=== PATIENT | female | born 1985 | race Caucasian/White ===

== ENCOUNTER 2017-09-22 18:36 | Emergency (ER) | payer BC, OTHER ==
[2017-09-22] MEDS ORDERED: HYDROmorphone 0.5 MG/0.5 ML Syringe IVPUSH ONE ×2 (19:49→22:46)
[2017-09-22] MEDS ORDERED: Ondansetron 4 MG/2 ML SDV IVPUSH ONE ×2 (19:49→23:57)
--- NOTE | 2017-09-22 19:55 | EDM.PDOC ---
ED HPI GENERAL MEDICAL PROBLEM - General Chief Complaint: Abdominal Pain Stated Complaint: ABDOMINAL PAIN Time Seen by Provider: 09/22/17 19:50 Source of Information: Reports: Patient History Limitations: Reports: No Limitations - History of Present Illness INITIAL COMMENTS - FREE TEXT/NARRATIVE: pt arrived with acute lower abdomanal pain. She has been vomiting since last nite. She states the pain has gotten progressively worse. She feels like the pain is worse on the rt side. She does have a past history of colitis. Onset: Other ( last nite. she has not had a bm in the last 36 hours. ) Duration: Hour(s): Location: Reports: Abdomen Quality: Reports: Sharp, Stabbing Associated Symptoms: Reports: Loss of Appetite, Nausea/Vomiting Middle Abdomen Pain Score (Numeric/FACES): 4 - Related Data Allergies Allergy/AdvReac Type Severity Reaction Status Date / Time No Known Allergies Allergy Verified 09/22/17 20:23 Home Meds: Home Meds Ciprofloxacin HCl [Cipro] 500 mg PO BID #14 tablet 02/01/14 [Rx] Past Medical History Other Gastrointestinal History: CHOLECYSTITIS Social & Family History - Tobacco Use Smoking Status *Q: Unknown Ever Smoked Second Hand Smoke Exposure: Yes - Alcohol Use Days Per Week of Alcohol Use: 5 Number of Drinks Per Day: 1 Total Drinks Per Week: 5 - Recreational Drug Use Recreational Drug Use: No ED ROS GENERAL - Review of Systems Review Of Systems: See Below Constitutional: Reports: No Symptoms HEENT: Reports: No Symptoms Respiratory: Reports: No Symptoms Cardiovascular: Reports: No Symptoms Endocrine: Reports: No Symptoms GI/Abdominal: Reports: Abdominal Pain, Decreased Appetite, Other (pt is passing some gas. ) : Reports: No Symptoms Musculoskeletal: Reports: No Symptoms Skin: Reports: No Symptoms Neurological: Reports: No Symptoms Psychiatric: Reports: No Symptoms ED EXAM, GI/ABD - Physical Exam Exam: See Below Text/Narrative:: pt arrived with acute lower abdomanal pain worse on the rt than the left. She has vomited everything for the past 36 hours. She continues to episodes of very severe pain. Exam Limited By: No Limitations General Appearance: Alert, Anxious, Severe Distress Eyes: Bilateral: Normal Appearance, EOMI Ears: Normal TMs Nose: Normal Inspection Throat/Mouth: Normal Inspection Head: Atraumatic Neck: Normal Inspection Respiratory/Chest: No Respiratory Distress Cardiovascular: Regular Rate, Rhythm GI/Abdominal Exam: Tender, Other (pt hs considerable tenderness in the lower abdoman. She does not appear to be distended, ) (Female) Exam: Deferred Rectal (Female) Exam: Deferred Back Exam: Normal Inspection Extremities: Normal Inspection Neurological: Alert, Oriented, Normal Cognition Psychiatric: Anxious Course - Vital Signs Last Recorded V/S: Last Vital Signs Temp 37.5 C 09/23/17 00:06 Pulse 73 09/23/17 00:06 Resp 15 09/23/17 00:06 BP 110/55 L 09/23/17 00:06 Pulse Ox 100 09/22/17 20:09 - Orders/Labs/Meds Orders: Active Orders 24 hr Category Date Time Status Pelvis Non OB Comp [US] Stat Exams 09/22/17 22:41 Taken Labs: Laboratory Tests 09/22/17 09/22/17 09/22/17 Range/Units 21:06 21:06 21:06 WBC 5.8 (4.5-11.0) K/uL RBC 4.16 (3.30-5.50) M/uL Hgb 12.7 D (12.0-15.0) g/dL Hct 37.4 (36.0-48.0) % MCV 90 (80-98) fL MCH 31 (27-31) pg MCHC 34 (32-36) % Plt Count 152 (150-400) K/uL Neut % (Auto) 80 H (36-66) % Lymph % (Auto) 9 L (24-44) % [place] % (Auto) 10 H (2-6) % Eos % (Auto) 1 L (2-4) % Baso % (Auto) 0 (0-1) % Sodium 140 (140-148) mmol/L Potassium 3.6 (3.6-5.2) mmol/L Chloride 107 (100-108) mmol/L Carbon Dioxide 24 (21-32) mmol/L Anion Gap 9.1 (5.0-14.0) mmol/L BUN 8 (7-18) mg/dL Creatinine 0.6 (0.6-1.0) mg/dL Est Cr Clr Drug Dosing 107.45 mL/min Estimated GFR (MDRD) > 60 (>60) Glucose 99 (74-106) mg/dL Calcium 7.6 L (8.5-10.1) mg/dL Total Bilirubin 0.4 (0.2-1.0) mg/dL AST 20 (15-37) U/L ALT 15 (12-78) U/L Alkaline Phosphatase 37 L (46-116) U/L C-Reactive Protein 0.55 H (0.0-0.3) mg/dL Total Protein 5.8 L (6.4-8.2) g/dL Albumin 3.2 L (3.4-5.0) g/dL Globulin 2.6 (2.3-3.5) g/dL Albumin/Globulin Ratio 1.2 (1.2-2.2) Urine Color Urine Appearance Urine pH (4.5-8.0) Ur Specific [place] (1.008-1.030) Urine Protein (NEGATIVE) mg/dL Urine Glucose (UA) (NEGATIVE) mg/dL Urine Ketones (NEGATIVE) mg/dL Urine Occult Blood (NEGATIVE) Urine Nitrite (NEGATIVE) Urine Bilirubin (NEGATIVE) Urine Urobilinogen (NORMAL) mg/dL Ur Leukocyte Esterase (NEGATIVE) Urine RBC (0-5) Urine WBC (0-5) Ur Epithelial Cells Amorphous Sediment Urine Bacteria Urine Mucus Urine HCG, Qual 09/22/17 09/22/17 Range/Units 21:17 21:17 WBC (4.5-11.0) K/uL RBC (3.30-5.50) M/uL Hgb (12.0-15.0) g/dL Hct (36.0-48.0) % MCV (80-98) fL MCH (27-31) pg MCHC (32-36) % Plt Count (150-400) K/uL Neut % (Auto) (36-66) % Lymph % (Auto) (24-44) % [place] % (Auto) (2-6) % Eos % (Auto) (2-4) % Baso % (Auto) (0-1) % Sodium (140-148) mmol/L Potassium (3.6-5.2) mmol/L Chloride (100-108) mmol/L Carbon Dioxide (21-32) mmol/L Anion Gap (5.0-14.0) mmol/L BUN (7-18) mg/dL Creatinine (0.6-1.0) mg/dL Est Cr Clr Drug Dosing mL/min Estimated GFR (MDRD) (>60) Glucose (74-106) mg/dL Calcium (8.5-10.1) mg/dL Total Bilirubin (0.2-1.0) mg/dL AST (15-37) U/L ALT (12-78) U/L Alkaline Phosphatase (46-116) U/L C-Reactive Protein (0.0-0.3) mg/dL Total Protein (6.4-8.2) g/dL Albumin (3.4-5.0) g/dL Globulin (2.3-3.5) g/dL Albumin/Globulin Ratio (1.2-2.2) Urine Color Yellow Urine Appearance Slightly cloudy Urine pH 5.0 (4.5-8.0) Ur Specific [place] 1.020 (1.008-1.030) Urine Protein Negative (NEGATIVE) mg/dL Urine Glucose (UA) Normal (NEGATIVE) mg/dL Urine Ketones 15 H (NEGATIVE) mg/dL Urine Occult Blood Negative (NEGATIVE) Urine Nitrite Negative (NEGATIVE) Urine Bilirubin Negative (NEGATIVE) Urine Urobilinogen Normal (NORMAL) mg/dL Ur Leukocyte Esterase Negative (NEGATIVE) Urine RBC 0-5 (0-5) Urine WBC 0-5 (0-5) Ur Epithelial Cells Few Amorphous Sediment Not seen Urine Bacteria Few Urine Mucus Many Urine HCG, Qual Negative Meds: Medications Discontinued Medications Generic Name Dose Route Start Last Admin Trade Name Freq PRN Reason Stop Dose Admin Hydromorphone HCl 0.5 mg 09/22/17 19:49 09/22/17 20:08 Dilaudid IVPUSH 09/22/17 19:50 0.5 mg ONETIME ONE Administration Hydromorphone HCl 0.5 mg 09/22/17 22:46 09/22/17 22:53 Dilaudid IVPUSH 09/22/17 22:47 0.5 mg ONETIME ONE Administration Hydromorphone HCl 0.5 mg 09/23/17 01:10 09/23/17 01:18 Dilaudid IVPUSH 09/23/17 01:11 0.5 mg ONETIME ONE Administration Sodium Chloride 1,000 mls @ 999 mls/hr 09/22/17 20:00 09/22/17 20:08 Normal Saline IV 999 mls/hr ASDIRECTED TONEY Administration Sodium Chloride 1,000 mls @ 999 mls/hr 09/22/17 20:45 Normal Saline IV ASDIRECTED TONEY Sodium Chloride 68 mls @ 3 mls/sec 09/22/17 21:30 09/22/17 21:42 Normal Saline IV 3 mls/sec ASDIRECTED TONEY Administration Iopamidol 88 ml 09/22/17 21:30 09/22/17 21:42 Isovue-300 (61%) IV 88 ml . DIRECTED TONEY Administration Ondansetron HCl 4 mg 09/22/17 19:49 09/22/17 20:08 Zofran IVPUSH 09/22/17 19:50 4 mg ONETIME ONE Administration Ondansetron HCl 4 mg 09/22/17 23:57 09/23/17 00:11 Zofran IVPUSH 09/22/17 23:58 4 mg ONETIME ONE Administration Sodium Chloride 10 ml 09/22/17 21:28 09/22/17 21:42 Saline Flush FLUSH 10 ml ASDIRECTED PRN Administration Keep Vein Open - Re-Assessments/Exams Free Text/Narrative Re-Assessment/Exam: 09/23/17 00:26 pt had an US which showed the IUD was stuck in the uterine wall but has not gone through the wall. She continued to have marked cramping. A cat scan of the abdoman was neg except for some swollen lymph nodes and the placement of the iud. Her lab work looks good. Departure - Departure Time of Disposition: 00:28 Disposition: DC/Tfer to Acute Hospital 02 Condition: Fair Clinical Impression: Abdominal pain Qualifiers: Abdominal location: lower abdomen, unspecified Qualified Code(s): R10.30 - Lower abdominal pain, unspecified - Discharge Information Referrals: PCP,None [Primary Care Provider] - Forms: ED Department Discharge Care Plan Goals: admit to the hosp. Tina Connors attempted to admit her to the hosp and because of the question regarding having the IUD in the wall of the uterus and almost through the wall The surgeon was not comfortable. She was threfore transfered to [facility] where there is OBgyn. - My Orders Last 24 Hours: My Active Orders 09/22/17 22:41 Pelvis Non OB Comp [US] Stat - Assessment/Plan Last 24 Hours: My Active Orders 09/22/17 22:41 Pelvis Non OB Comp [US] Stat
[2017-09-22] MEDS ORDERED: Sodium Chloride 0.9% 1,000 ML IV SCH ×2 (20:00→20:45)
[2017-09-22] MEDS ORDERED: Sodium Chloride 0.9% 10 ML Syringe FLUSH PRN (21:28)
[2017-09-22] MEDS ORDERED: Iopamidol 612 MG/ML 100 ML Bottle IV SCH (21:30)
[2017-09-23] MEDS ORDERED: HYDROmorphone 0.5 MG/0.5 ML Syringe IVPUSH ONE (01:10)
--- NOTE | 2017-09-23 01:16 | PCM.CONS ---
H&P History of Present Illness - General Date of Service: 09/23/17 Source of Information: Patient History Limitations: Reports: No Limitations - History of Present Illness Initial Comments - Free Text/Narative: Acute lower abdomen pain since last night, reports feels like labor pains, every pain causing her to vomit. denies fever or chills. Duration of Symptoms: Reports: Day(s): Location: Reports: Abdomen Quality: Reports: Sharp, Stabbing Improves with: Reports: None Worsens with: Reports: None Context: Reports: Other (CT abdomen-pelvis, pelvic ultrasound; IUD throught the myometrium of uterus with free fluid in pelvis.) Middle Abdomen Pain Score (Numeric/FACES): 4 - Related Data Allergies/Adverse Reactions: Allergies Allergy/AdvReac Type Severity Reaction Status Date / Time No Known Allergies Allergy Verified 09/22/17 20:23 Home Medications: Home Meds Ciprofloxacin HCl [Cipro] 500 mg PO BID #14 tablet 02/01/14 [Rx] Past Medical History Other Gastrointestinal History: CHOLECYSTITIS Social & Family History - Tobacco Use Smoking Status *Q: Unknown Ever Smoked Second Hand Smoke Exposure: Yes - Alcohol Use Days Per Week of Alcohol Use: 5 Number of Drinks Per Day: 1 Total Drinks Per Week: 5 - Recreational Drug Use Recreational Drug Use: No H&P Review of Systems - Review of Systems: Review Of Systems: See Below Gastrointestinal: Reports: Abdominal Pain Genitourinary: Reports: No Symptoms Musculoskeletal: Reports: No Symptoms Exam - Exam Exam: See Below - Vital Signs Vital Signs: Last Vital Signs Temp 37.5 C 09/23/17 00:06 Pulse 73 09/23/17 00:06 Resp 15 09/23/17 00:06 BP 110/55 L 09/23/17 00:06 Pulse Ox 100 09/22/17 20:09 Weight: 58.7 kg - Exam (Female) Exam: Normal External Exam, Adnexal Tenderness, Cervical Discharge ( thin milky discharge), Cervical Fluid, Cervix Motion Tenderness, Uterine Tenderness, Vaginal Discharge, Other (IUD strings noted at os. acutely tender left adnexa) Rectal (Female) Exam: Deferred Back Exam: Normal Inspection, Full Range of Motion Skin: Warm, Dry, Intact - Patient Data Lab Results Last 24 hrs: Laboratory Results - last 24 hr 09/22/17 09/22/17 09/22/17 Range/Units 21:06 21:06 21:06 WBC 5.8 (4.5-11.0) K/uL RBC 4.16 (3.30-5.50) M/uL Hgb 12.7 D (12.0-15.0) g/dL Hct 37.4 (36.0-48.0) % MCV 90 (80-98) fL MCH 31 (27-31) pg MCHC 34 (32-36) % Plt Count 152 (150-400) K/uL Neut % (Auto) 80 H (36-66) % Lymph % (Auto) 9 L (24-44) % [place] % (Auto) 10 H (2-6) % Eos % (Auto) 1 L (2-4) % Baso % (Auto) 0 (0-1) % Sodium 140 (140-148) mmol/L Potassium 3.6 (3.6-5.2) mmol/L Chloride 107 (100-108) mmol/L Carbon Dioxide 24 (21-32) mmol/L Anion Gap 9.1 (5.0-14.0) mmol/L BUN 8 (7-18) mg/dL Creatinine 0.6 (0.6-1.0) mg/dL Est Cr Clr Drug Dosing 107.45 mL/min Estimated GFR (MDRD) > 60 (>60) Glucose 99 (74-106) mg/dL Calcium 7.6 L (8.5-10.1) mg/dL Total Bilirubin 0.4 (0.2-1.0) mg/dL AST 20 (15-37) U/L ALT 15 (12-78) U/L Alkaline Phosphatase 37 L (46-116) U/L C-Reactive Protein 0.55 H (0.0-0.3) mg/dL Total Protein 5.8 L (6.4-8.2) g/dL Albumin 3.2 L (3.4-5.0) g/dL Globulin 2.6 (2.3-3.5) g/dL Albumin/Globulin Ratio 1.2 (1.2-2.2) Urine Color Urine Appearance Urine pH (4.5-8.0) Ur Specific [place] (1.008-1.030) Urine Protein (NEGATIVE) mg/dL Urine Glucose (UA) (NEGATIVE) mg/dL Urine Ketones (NEGATIVE) mg/dL Urine Occult Blood (NEGATIVE) Urine Nitrite (NEGATIVE) Urine Bilirubin (NEGATIVE) Urine Urobilinogen (NORMAL) mg/dL Ur Leukocyte Esterase (NEGATIVE) Urine RBC (0-5) Urine WBC (0-5) Ur Epithelial Cells Amorphous Sediment Urine Bacteria Urine Mucus Urine HCG, Qual 09/22/17 09/22/17 Range/Units 21:17 21:17 WBC (4.5-11.0) K/uL RBC (3.30-5.50) M/uL Hgb (12.0-15.0) g/dL Hct (36.0-48.0) % MCV (80-98) fL MCH (27-31) pg MCHC (32-36) % Plt Count (150-400) K/uL Neut % (Auto) (36-66) % Lymph % (Auto) (24-44) % [place] % (Auto) (2-6) % Eos % (Auto) (2-4) % Baso % (Auto) (0-1) % Sodium (140-148) mmol/L Potassium (3.6-5.2) mmol/L Chloride (100-108) mmol/L Carbon Dioxide (21-32) mmol/L Anion Gap (5.0-14.0) mmol/L BUN (7-18) mg/dL Creatinine (0.6-1.0) mg/dL Est Cr Clr Drug Dosing mL/min Estimated GFR (MDRD) (>60) Glucose (74-106) mg/dL Calcium (8.5-10.1) mg/dL Total Bilirubin (0.2-1.0) mg/dL AST (15-37) U/L ALT (12-78) U/L Alkaline Phosphatase (46-116) U/L C-Reactive Protein (0.0-0.3) mg/dL Total Protein (6.4-8.2) g/dL Albumin (3.4-5.0) g/dL Globulin (2.3-3.5) g/dL Albumin/Globulin Ratio (1.2-2.2) Urine Color Yellow Urine Appearance Slightly cloudy Urine pH 5.0 (4.5-8.0) Ur Specific [place] 1.020 (1.008-1.030) Urine Protein Negative (NEGATIVE) mg/dL Urine Glucose (UA) Normal (NEGATIVE) mg/dL Urine Ketones 15 H (NEGATIVE) mg/dL Urine Occult Blood Negative (NEGATIVE) Urine Nitrite Negative (NEGATIVE) Urine Bilirubin Negative (NEGATIVE) Urine Urobilinogen Normal (NORMAL) mg/dL Ur Leukocyte Esterase Negative (NEGATIVE) Urine RBC 0-5 (0-5) Urine WBC 0-5 (0-5) Ur Epithelial Cells Few Amorphous Sediment Not seen Urine Bacteria Few Urine Mucus Many Urine HCG, Qual Negative Result Diagrams: 09/22/17 21:06 09/22/17 21:06 Consult PN Assessment/Plan (1) Abdominal pain SNOMED Code(s): 51763056 Code(s): R10.9 - UNSPECIFIED ABDOMINAL PAIN Priority: High Current Visit : Yes Qualifiers: Abdominal location: lower abdomen, unspecified Qualified Code(s): R10.30 - Lower abdominal pain, unspecified (2) Nausea and vomiting SNOMED Code(s): 84679904 Code(s): R11.2 - NAUSEA WITH VOMITING, UNSPECIFIED Priority: High Current Visit: Yes Problem List Initiated/Reviewed/Updated: Yes My Orders Last 24 Hours: My Active Orders 09/23/17 01:10 HYDROmorphone [Dilaudid] 0.5 mg IVPUSH ONETIME ONE Plan: consult with Surgeon at [facility], advised to refer to [facility]. consult with [facility], Dr. Gillespie, accept Mrs. Irwin for further care and treatment. advise to send to ER and will be evaluated there. Also reviewed case with Dr. Connors, ER Md. will send by POV, saline lock in left AC, copies of ultrasound, CT given to patient for Medical Provider. and Mrs. Irwin agree with plan of care.
== END 2017-09-23 01:45 ==
LOC: JP.ED 18:36
DX: R10.30 Lower abdominal pain, unspecified (principal)
CPT/HCPCS: 36415; 74177; 76830; 76856; 80053; 81001; 81025; 85025; 86140; 96361; 96374; 96375; 96376; 99285; J1170; J2405; J7030; J7040; J7050; Q9967

== ENCOUNTER 2022-06-08 10:58 | Emergency (ER) | payer OTHER, BC | END 2022-06-08 13:02 | disposition home or self-care (01) | LOC: JP.ED 10:58 | DX: M54.2 Cervicalgia (principal); M62.838 Other muscle spasm; G44.319 Acute post-traumatic headache, not intractable; Z88.0 Allergy status to penicillin; Z91.048 Other nonmedicinal substance allergy status | CPT/HCPCS: 70450; 70450-26; 72125; 72125-26; 99284 ==